=== PATIENT | male | born 1995 | race Caucasian/White ===

== ENCOUNTER 2021-11-10 08:55 | Emergency (ER) | payer BC ==
[~2021-11-10] VITALS: Ht 172.7 cm; Wt 80.0 kg
[2021-11-10 11:38] VITALS: BP 127/89
== END 2021-11-10 11:44 | disposition home or self-care (01) ==
LOC: ER 08:55
DX: N48.1 Balanitis (principal); Z90.49 Acquired absence of other specified parts of digestive tract
CPT/HCPCS: 99281

== ENCOUNTER 2021-11-17 15:06 | Emergency (ER) | payer BC ==
[~2021-11-17] VITALS: Ht 172.7 cm; Wt 79.0 kg
[2021-11-17 16:41] VITALS: BP 129/86
== END 2021-11-17 16:42 | disposition home or self-care (01) ==
LOC: ER 15:06
DX: N48.1 Balanitis (principal); Z90.49 Acquired absence of other specified parts of digestive tract
CPT/HCPCS: 99281